=== PATIENT | female | born 1980 | race Caucasian/White ===

== ENCOUNTER 2018-09-06 08:58 | Emergency (ER) | payer BC, OTHER ==
[~2018-09-06] VITALS: Ht 167.6 cm; Wt 63.5 kg
--- NOTE | 2018-09-06 09:30 | ED Cardiac General ---
History of Present Illness General Chief Complaint: Cardiac/General Problems Stated Complaint: PALPITATIONS History of Present Illness Date Seen by Provider: Sep 06, 2018 Time Seen by Provider: 09:17 Initial Comments The patient is a very pleasant 38-year-old female who presents for evaluation of palpitations and also states that she had blood drawn yesterday which showed an elevated potassium of 7.9. She was notified of this elevated blood tests and told to go to the emergency department. She says that over the last week she's been having some palpitations and says that sometimes her chest feels somewhat tight. 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 She denies any recent IV drug abuse but states that she did used to use IV drugs greater than 10 years ago. She is alert and oriented 4, slightly anxious, and appears to be in no distress. She denies fevers or chills, nausea or vomiting, cough, hemoptysis , back pain, abdominal pain, dizziness, syncope, or shortness of breath. Timing/Duration: 1 week Severity: mild Activities at Onset: emotional stress Allergies and Home Medications Patient Home Medication List Home Medication List Reviewed: Yes Review of Systems Review of Systems Constitutional: no symptoms reported EENTM: No Symptoms Reported Respiratory: No Symptoms Reported Cardiovascular: See HPI, Palpitations Gastrointestinal: No Symptoms Reported Genitourinary: No Symptoms Reported Musculoskeletal: no symptoms reported Skin: no symptoms reported Psychiatric/Neurological: Anxiety Endocrine: No Symptoms Reported Hematologic/Lymphatic: No Symptoms Reported All Other Systems Reviewed Negative Unless Noted: Yes Past Uditwvr-Deasva-Ugdgob Hx Past Med/Social Hx: Reviewed Nursing Past Med/Soc Hx Patient Social History Recent Foreign Travel: Yes Contact w/Someone Who Travel: Yes Past Medical History : No Physical Exam Vital Signs Vital Signs - First Documented 09/06/18 09:05 Temp 98.7 Pulse 65 Resp 21 B/P (MAP) 127/79 (95) Pulse Ox 100 O2 Delivery Room Air Capillary Refill : Height, Weight, BMI Height: '" Weight: lbs. oz. kg; BMI Method: General Appearance: No Apparent Distress, WD/WN HEENT: PERRL/EOMI, Pharynx Normal Neck: Full Range of Motion, Normal Inspection, Non Tender Respiratory: Chest Non Tender, Lungs Clear, Normal Breath Sounds, No Accessory Muscle Use, No Respiratory Distress Cardiovascular: Regular Rate, Rhythm, No Edema, No Gallop, No JVD Gastrointestinal: Normal Bowel Sounds, Non Tender, Soft Extremity: Normal Capillary Refill, Normal Inspection, Normal Range of Motion, Non Tender Neurologic/Psychiatric: Alert, Oriented x3, No Motor/Sensory Deficits, Normal Mood/Affect Progress/Results/Core Measures Results/Orders Lab Results Laboratory Tests Test 09/06/18 09:30 09/06/18 10:30 Range/Units White Blood Count 5.5 4.3-11.0 10^3/uL Red Blood Count 5.40 4.35-5.85 10^6/uL Hemoglobin 15.9 11.5-16.0 G/DL Hematocrit 49 35-52 % Mean Corpuscular Volume 90 80-99 FL Mean Corpuscular Hemoglobin 29 25-34 PG Mean Corpuscular Hemoglobin Concent 33 32-36 G/DL Red Cell Distribution Width 12.4 10.0-14.5 % Platelet Count 255 130-400 10^3/uL Mean Platelet Volume 10.8 H 7.4-10.4 FL Neutrophils (%) (Auto) 63 42-75 % Lymphocytes (%) (Auto) 29 12-44 % Monocytes (%) (Auto) 6 0-12 % Eosinophils (%) (Auto) 1 0-10 % Basophils (%) (Auto) 1 0-10 % Neutrophils # (Auto) 3.5 1.8-7.8 X 10^3 Lymphocytes # (Auto) 1.6 1.0-4.0 X 10^3 Monocytes # (Auto) 0.3 0.0-1.0 X 10^3 Eosinophils # (Auto) 0.1 0.0-0.3 10^3/uL Basophils # (Auto) 0.0 0.0-0.1 10^3/uL D-Dimer < 0.22 0.00-0.49 UG/ML Sodium Level 135 135-145 MMOL/L Potassium Level 4.6 3.6-5.0 MMOL/L Chloride Level 101 98-107 MMOL/L Carbon Dioxide Level 20 L 21-32 MMOL/L Anion Gap 14 5-14 MMOL/L Blood Urea Nitrogen 12 7-18 MG/DL Creatinine 0.46 L 0.60-1.30 MG/DL Estimat Glomerular Filtration Rate > 60 BUN/Creatinine Ratio 26 Glucose Level 116 H 70-105 MG/DL Calcium Level 8.6 8.5-10.1 MG/DL My Orders Orders - ROGER ISLAS DO Basic Metabolic Panel (09/06/18 09:16) Cbc And Manual Diff (09/06/18 09:23) Fibrin Degradation Products (09/06/18 09:23) Hcg,Qualitative Urine (09/06/18 09:23) Chest Pa/Lat (2 View) (09/06/18 09:23) Drug Screen Stat (Urine) (09/06/18 09:27) Vital Signs/I&O 09/06/18 09/06/18 09:05 10:07 Temp 98.7 Pulse 65 68 Resp 21 13 B/P (MAP) 127/79 (95) 105/59 (74) Pulse Ox 100 96 O2 Delivery Room Air Room Air Progress Progress Note : Time: 11:30 Progress Note @1130 - The patient reports that she is feeling better, her potassium has resulted and is within the normal range and her d-dimer is negative. My concern for a pulmonary embolism was minimal. Workup today feels revealing emergent pathology. The patient is stable for discharge home at this time. Advised that she follow-up with her doctor in the next 2-3 days and return to the emergency department immediately for any new or worsening symptoms. Initial ECG Impression Date: Sep 06, 2018 Initial ECG Impression Time: 09:08 Initial ECG Rate: 62 Initial ECG Rhythm: Normal Sinus Initial ECG Intervals: Normal Initial ECG Impression: Normal Departure Impression Primary Impression: Palpitations Additional Impression: Feared condition not demonstrated Disposition: 01 HOME, SELF-CARE Condition: Stable Departure-Patient Inst. Decision time for Depature: 11:30 Referrals: CIELO POWERS MD (PCP/Family) Primary Care Physician Patient Instructions: Palpitations (DC) Add. Discharge Instructions: Follow-up with your doctor in the next 2-3 days. Return to ER for new or worsening symptoms. You're doing a great job avoiding illicit substances keep up the good work. ROGER ISLAS DO Sep 06, 2018 09:30
[2018-09-06 10:07] VITALS: BP 105/59
[2018-09-06 11:11] LABS: BUN/CREATININE RATIO 26; CALCIUM 8.6 MG/DL (8.5-10.1); CARBON DIOXIDE 20 MMOL/L (21-32); CHLORIDE 101 MMOL/L (98-107); CREATININE SERUM 0.46 MG/DL (0.60-1.30); GFR ESTIMATED > 60; GLUCOSE 116 MG/DL (70-105); POTASSIUM 4.6 MMOL/L (3.6-5.0); SODIUM 135 MMOL/L (135-145)
[2018-09-06 11:18] LABS: BASOPHILS % (AUTO) 1 % (0-10); EOSINOPHILS % (AUTO) 1 % (0-10); HEMATOCRIT 49 % (35-52); HEMOGLOBIN 15.9 G/DL (11.5-16.0); LYMPHOCYTES # (AUTO) 1.6 X 10^3 (1.0-4.0); LYMPHOCYTES % (AUTO) 29 % (12-44); MEAN CORPUSCULAR HEMOGLOBIN 29 PG (25-34); MEAN CORPUSCULAR HGB CONC 33 G/DL (32-36); MEAN CORPUSCULAR VOLUME 90 FL (80-99); MEAN PLATELET VOLUME 10.8 FL (7.4-10.4); MONOCYTES % (AUTO) 6 % (0-12); NEUTROPHILS # (AUTO) 3.5 X 10^3 (1.8-7.8); NEUTROPHILS % (AUTO) 63 % (42-75); PLATELET COUNT 255 10^3/uL (130-400); RED CELL DISTRIBUTION WIDTH 12.4 % (10.0-14.5); WHITE BLOOD COUNT 5.5 10^3/uL (4.3-11.0)
[2018-09-06 11:19] LABS: EOSINOPHILS # (AUTO) 0.1 10^3/uL (0.0-0.3); MONOCYTES # (AUTO) 0.3 X 10^3 (0.0-1.0)
[2018-09-06 11:48] LABS: BAND NEUTROPHILS 9 %; BASOPHILS % (MANUAL) 2 %; EOSINOPHILS % (MANUAL) 1 %; LYMPHOCYTES % (MANUAL) 25 %; MONOCYTES % (MANUAL) 7 %; NEUTROPHILS % (MANUAL) 56 %; RBC MORPH NORMAL
[2018-09-06 12:04] VITALS: BP 111/63
[2018-09-06 16:20] LABS: AMPHETAMINE SCREEN, URINE NEGATIVE (NEGATIVE); BARBITURATE SCREEN URINE NEGATIVE (NEGATIVE); BENZODIAZEPINES SCREEN URINE NEGATIVE (NEGATIVE); CANNABINOID SCREEN, URINE NEGATIVE (NEGATIVE); COCAINE SCREEN URINE NEGATIVE (NEGATIVE); METHADONE STAT NEGATIVE (NEGATIVE); METHAMPHETAMINE SCREEN URINE S NEGATIVE (NEGATIVE); OPIATE SCREEN URINE NEGATIVE (NEGATIVE); OXYCODONE STAT NEGATIVE (NEGATIVE); PROPOXYPHENE STAT NEGATIVE (NEGATIVE); TRICYCLIC ANTIDEPRESSANTS SCRE NEGATIVE (NEGATIVE)
== END 2018-09-06 11:50 | disposition home or self-care (01) ==
LOC: ER FS 09:01
DX: R00.2 Palpitations (principal)
CPT/HCPCS: 36415; 80048; 80306; 84703; 85007; 85027; 85379; 93005

== ENCOUNTER → 2018-12-03 | Outpatient (CLI) | payer BC ==
--- NOTE | 2018-12-03 16:56 | Diagnostic Imaging Report ---
INDICATION: Epigastric pain for 3 months as well as vomiting and diarrhea. TIME OF EXAM: 4:36 PM. COMPARISON: No prior studies are available for comparison. FINDINGS: No free air is identified. The bowel gas pattern is nonobstructive. No pathologic calcifications are seen. Calcifications in the pelvis are likely phleboliths. IMPRESSION: No acute abnormality is detected. Dictated by: Dictated on workstation # [id number]
== END ==
LOC: RAD FS 16:29
PROVIDERS: ATTEND Family Medicine
DX: R10.13 Epigastric pain (principal); R11.10 Vomiting, unspecified; R19.7 Diarrhea, unspecified
CPT/HCPCS: 74019

== ENCOUNTER → 2019-01-02 | Outpatient (CLI) | payer BC ==
--- NOTE | 2019-01-02 10:26 | Diagnostic Imaging Report ---
PROCEDURE: US Gallbladder. TECHNIQUE: Multiple real-time grayscale images were obtained over the right upper quadrant in various projections. INDICATION: Vomiting. The liver measures 17.3 cm. No discrete liver masses identified. The gallbladder is without stones or sludge. No wall thickening or biliary ductal dilatation is seen. The visualized pancreas is unremarkable. Right kidney is without calculi or hydronephrosis. There is no ascites. IMPRESSION: Unremarkable gallbladder ultrasound. Dictated by: Dictated on workstation # [id number]
== END ==
LOC: RAD FS 08:11
PROVIDERS: ATTEND Surgery
DX: R11.10 Vomiting, unspecified (principal)
CPT/HCPCS: 76705

== ENCOUNTER 2019-01-03 11:15 | Outpatient (CLI) | payer BC ==
[~2019-01-03] VITALS: Ht 167.6 cm; Wt 69.9 kg
== END 2019-01-03 11:42 | disposition home or self-care (01) ==
LOC: PREOP 11:15
PROVIDERS: ATTEND Surgery
DX: Z01.818 Encounter for other preprocedural examination (principal)

== ENCOUNTER 2019-01-06 10:10 | Day surgery (SDC) | payer BC ==
[~2019-01-06] VITALS: Ht 167.6 cm; Wt 69.9 kg
[2019-01-06] MEDS ORDERED: LACTATED RINGERS 1,000 ML IV STA (10:22)
[2019-01-06] MEDS ORDERED: LACTATED RINGERS 1,000 ML IV ONE (10:24)
[2019-01-06] MEDS ORDERED: HURRICAINE EXT TUBE (BENZOCAINE) XX PRN (10:30)
--- NOTE | 2019-01-06 11:01 | Progress Note-Pre Operative ---
Pre-Operative Progress Note H&P Reviewed The H&P was reviewed, patient examined and no changes noted. Time Seen by Provider: 10:56 Date H&P Reviewed: Jan 06, 2019 Time H&P Reviewed: 10:57 Pre-Operative Diagnosis: Upper abd pain, Gastritis, change in bowel habits DARRION BUSTOS DO Jan 06, 2019 11:01
[2019-01-06 11:15] VITALS: BP 109/67
[2019-01-06] MEDS ORDERED: PROPOFOL INJECTION 50 ML IV ONE (11:26)
[2019-01-06] MEDS ORDERED: MIDAZOLAM 2 MG/2 ML (VERSED) VIAL ONE (11:26)
[2019-01-06] MEDS ORDERED: HURRICAINE EXT TUBE (BENZOCAINE) ONE (12:31)
--- NOTE | 2019-01-06 12:40 | Anesthesia-General Post-Op ---
MAC Patient Condition Mental Status/LOC: Same as Preop Cardiovascular: Satisfactory Nausea/Vomiting: Absent Respiratory: Satisfactory Pain: Controlled Complications: Absent Post Op Complications Complications None Follow Up Care/Instructions Patient Instructions None needed. Anesthesiology Discharge Order Discharge Order Patient is doing well, no complaints, stable vital signs, no apparent adverse anesthesia problems. No complications reported per nursing. JESSICA QUESADA CRNA Jan 06, 2019 12:40
[2019-01-06 12:45] VITALS: BP 117/68
--- NOTE | 2019-01-06 13:50 | Progress Note-Post Operative ---
Post-Operative Progess Note Surgeon (s)/Carbon Rod Inserter (s) Surgeon DARRION BUSTOS DO Carbon Rod Inserter: none Pre-Operative Diagnosis Upper abd pain, Gastritis, change in bowel habits Post-Operative Diagnosis Gastritis Hiatal hernia Esophagitis Internal hemorrhoids Procedure & Operative Findings Date of Procedure 01/06/19 Procedure Performed/Findings EGD with bx Colon Anesthesia Type IV sedation by CARDIOLOGY TECHNOLOGIST Estimated Blood Loss Estimated blood loss (mL): scant Specimens/Packing Specimens Removed antral bx body of stomach GE jxn DARRION BUSTOS DO Jan 06, 2019 13:50
--- NOTE | 2019-01-06 13:52 | Endoscopy Discharge Instruct ---
Endo Procedure/Findings Findings 1.: Gastritis 2.: Hiatal Hernia 3.: Internal Hemorrhoids Discharge Instructions - Activity: You might feel a little sleepy until tomorrow. This is due to the medicine you received to relax you. Until tomorrow, you should: NOT drive a car, operate machinery or power tools. NOT drink any alcoholic beverages. NOT make any important decisions or sign importortant papers. Do not return to work until tomorrow, unless otherwise instructed. Resume previous activities tomorrow. Diet: Start by taking liquids. If you tolerate liquids, advance to solid food. make an appointment for one week Notify Physician - If you experience excessive bleeding, unusual abdominal pain, fever, or chest pain, contact your doctor immediately. Follow-Up: - I have received and understand the above instructions and will call my doctor if I have any further questions. Patient Signature Date Nurse Signature Other (Relationship) DARRION BUSTOS DO Jan 06, 2019 13:52
[2019-01-06 13:55] VITALS: BP 104/71
[2019-01-06 14:17] VITALS: BP 104/71
--- NOTE | 2019-01-06 20:44 | OPERATIVE REPORT ---
DATE OF SERVICE: PREOPERATIVE DIAGNOSES: Abdominal pain, nausea, vomiting, change in bowel habits, possible gastritis. POSTOPERATIVE DIAGNOSES: Gastritis, hiatal hernia, internal hemorrhoids, diverticulosis. PROCEDURES: 1. EGD with biopsy. 2. Colonoscopy. SURGEON: Oscar Alves DO FREEDOM OF INFORMATION OFFICER: None. ANESTHESIA: IV sedation by FIELD OPERATIONS TECHNICIAN. SPECIMEN: One biopsy from the antrum, one biopsy from the body of the stomach and one biopsy from the GE junction. BLOOD LOSS: Scant. FLUIDS: Per anesthesia. POSTOPERATIVE CONDITION: Stable. INDICATION FOR PROCEDURE: The patient is a 38-year-old female who has been having abdominal pain in the upper abdomen, some nausea, vomiting, change in bowel habits and needs a workup. FINDINGS: The patient has some gastritis, had a small hiatal hernia, little bit of esophagitis and she had some internal hemorrhoids. PROCEDURE NOTE: After informed consent was obtained, the patient was brought to the endoscopy suite, placed in the bed in the left lateral decubitus position. She was administered IV sedation by the FIELD OPERATIONS TECHNICIAN who monitored her vitals the entire time, heart rate, blood pressure and pulse ox and the scope was inserted down the mouth through the esophagus into the stomach. Upon entering the stomach, looked at the antrum there was some mild inflammation pushed through into the duodenum. Duodenum looked good, took a picture of this, backed up and then did a biopsy of the antrum. I then took a biopsy of the body of stomach. Retroflexed, saw small hiatal hernia. Pulled back in the GE junction, saw some mild changes in the Z line. Elected to do a biopsy here and then pulled the scope up the esophagus and out the mouth. Switched gloves, switched scopes, went down below, started the colonoscopy, pushed the scope in, pushed all the way about 140 cm, able to get to the cecum. On the way in, noted diverticula, took a picture of this. Once in the cecum, took a picture of appendiceal orifice, then able to get into the terminal ileum, looked fine and then slowly withdrew the scope insufflating to look circumferentially looking at the cecum up the ascending colon to the hepatic flexure, then down the transverse colon, the splenic flexure, into the descending colon, then down in the sigmoid and finally into the rectum, retroflexed in the rectal vault, saw some small internal hemorrhoids, took a picture of this and then removed the scope. The patient tolerated the procedure, recovered in endoscopy suite. Job ID: [id number] DocumentID: [id number] Dictated Date: 01/06/2019 16:05:42 Choke Reamer Date: 01/06/2019 20:43:17 Dictated By: OSCAR ALVES DO
== END 2019-01-06 14:00 | disposition home or self-care (01) ==
LOC: ENDO 10:10
PROVIDERS: ATTEND Surgery
DX: K29.50 Unspecified chronic gastritis without bleeding (principal); K44.9 Diaphragmatic hernia without obstruction or gangrene; K64.8 Other hemorrhoids; K20.9 Esophagitis, unspecified; K57.30 Diverticulosis of large intestine without perforation or abscess without bleeding; R19.4 Change in bowel habit; F41.9 Anxiety disorder, unspecified
CPT/HCPCS: 36415; 84703

== ENCOUNTER → 2019-09-09 | Outpatient (CLI) | payer SELFPAY ==
--- NOTE | 2019-09-09 11:18 | Diagnostic Imaging Report ---
INDICATION: Ankle pain. COMPARISON: None available. TECHNIQUE: Three radiographs of the right ankle dated September 09, 2019. FINDINGS: No acute fracture or dislocation. No destructive osseous process. The talar dome is unremarkable. Ankle mortise is symmetric. Tiny radiopaque density is noted within the soft tissues posterior to the distal tibial shaft. IMPRESSION: No acute osseous abnormality. Small radiopaque density overlying the soft tissues posterior to the distal tibial shaft. This could simply be artifactual and within an overlying garment. Other small radiopaque foreign body not excluded. Recommend clinical correlation and direct visualization. Dictated by: Dictated on workstation # [id number]
== END ==
LOC: RAD FS 09:58
PROVIDERS: ATTEND Nurse Practitioner
DX: M25.571 Pain in right ankle and joints of right foot (principal); M79.89 Other specified soft tissue disorders
CPT/HCPCS: 73610

== ENCOUNTER 2021-03-28 12:13 | Outpatient (CLI) | payer SELFPAY ==
[2021-03-28 12:10] VITALS: BP 98/60
[2021-03-28] MEDS ORDERED: EPINEPHrine INJECTION 1 MG/ML AMP IM PRN (12:30)
[2021-03-28] MEDS ORDERED: ONDANSETRON 4 MG/2 ML (SDV) Z0FRAN IV PRN (12:30)
[2021-03-28] MEDS ORDERED: CASIRIVIMAB/IMDEVIMAB 1,200 MG in NS (IVPB) 250 ML IV ONE (12:30)
[2021-03-28] MEDS ORDERED: diphenhydrAMINE 50 MG/ML INJ (BENADRYL) IV PRN (12:30)
[2021-03-28] MEDS ORDERED: ACETAMINOPHEN 500 MG TAB (TYLENOL) PO PRN (12:30)
[2021-03-28 15:23] VITALS: BP 101/54
== END 2021-03-28 15:24 ==
LOC: INFUSION 12:13
PROVIDERS: ATTEND Registered Nurse
DX: Z23 Encounter for immunization (principal); U07.1 COVID-19